=== PATIENT | male | born 1955 | race Hispanic/Latino ===

== ENCOUNTER → 2019-12-27 | Outpatient (CLI) | payer OTHER ==
[~2019-12-27] MED LIST: AMLO-97 PO; ASPI-1012 PO; CANA300T PO; COLC0.6C3 PO; HYDR-4457 PO; INSU300I SQ; LIRA0.6P2 SQ; LOSA50TA64 PO; METF-446 PO
== END | disposition home or self-care (01) ==
LOC: RAH 09:57
PROVIDERS: ATTEND Family Medicine
DX: E11.22 Type 2 diabetes mellitus with diabetic chronic kidney disease (principal); R25.2 Cramp and spasm; N18.9 Chronic kidney disease, unspecified; R22.41 Localized swelling, mass and lump, right lower limb
CPT/HCPCS: 93922; 93926; 93971

== ENCOUNTER → 2020-10-02 | Outpatient (CLI) | payer MEDICARE | END | disposition home or self-care (01) | LOC: RAH 13:58 | PROVIDERS: ATTEND Orthopaedic Surgery | DX: M17.12 Unilateral primary osteoarthritis, left knee (principal); M25.752 Osteophyte, left hip | CPT/HCPCS: 73700 ==

== ENCOUNTER → 2022-04-22 | Outpatient (CLI) | payer MEDICARE ==
[~2022-04-22] VITALS: Ht 175.3 cm; Wt 94.3 kg
[~2022-04-22] MED LIST changes: +ACAR25TA2 PO; +AEC81 PO; +AMLO-142 PO; -AMLO-97 PO; +CHOL4POW4 PO; +DAPA10TA PO; +FOLI1TAB85 PO; +FURO-152 PO; +METO-409 PO; +MONT-39 PO; +OMEP40CA21 PO; +SEMA14TA2 PO; +SODI650T PO
[2022-04-22 11:16] LABS: BASOPHILS % (AUTO) 0.8 % (0.0-5.0); EOSINOPHILS % (AUTO) 5.3 % (0.0-8.0); HEMATOCRIT 47.2 % (42-54); LYMPHOCYTES % (AUTO) 27.7 % (21.0-51.0); MEAN CORPUSCULAR HEMOGLOBIN 30.1 pg (27.0-33.0); MEAN CORPUSCULAR HGB CONC 33.1 g/dL (32.0-36.0); MEAN CORPUSCULAR VOLUME 90.9 fL (79-99); MONOCYTES % (AUTO) 7.1 % (3.0-13.0); PLATELET COUNT (AUTO) 195 K/uL (130-400); RED BLOOD CELL COUNT(AUTO) 5.19 MIL/uL (4.50-6.20); RED CELL DISTRIBUTION WIDTH 13.7 % (11.0-15.5); WHITE BLOOD COUNT (AUTO) 6.5 K/uL (4.8-10.8)
[2022-04-22 11:25] LABS: CREATININE 1.3 mg/dL (0.5-1.5); POTASSIUM 4.6 mmol/L (3.5-5.1)
[2022-04-22 11:46] LABS: INR 0.93 (0.85-1.15); PROTHROMBIN TIME 10.2 SEC (9.6-11.6)
[2022-04-22 11:47] LABS: PARTIAL THROMBOPLASTIN TIME 37.4 SEC (26.3-35.5)
[2022-04-22 12:08] VITALS: BP 140/78
== END | disposition home or self-care (01) ==
LOC: RAH 10:16
PROVIDERS: ATTEND Orthopaedic Surgery
DX: Z01.818 Encounter for other preprocedural examination (principal); M17.12 Unilateral primary osteoarthritis, left knee; M25.762 Osteophyte, left knee; M16.12 Unilateral primary osteoarthritis, left hip; M19.072 Primary osteoarthritis, left ankle and foot; Z20.822 Contact with and (suspected) exposure to COVID-19; E11.9 Type 2 diabetes mellitus without complications; N28.9 Disorder of kidney and ureter, unspecified
CPT/HCPCS: 73700; 87426; 80048; 85025; 85610; 85730; 36415; A6260

== ENCOUNTER 2022-04-28 07:36 | Observation (INO) | payer MEDICARE ==
[2022-04-22 11:16] LABS: BASOPHILS % (AUTO) 0.8 % (0.0-5.0); EOSINOPHILS % (AUTO) 5.3 % (0.0-8.0); HEMATOCRIT 47.2 % (42-54); LYMPHOCYTES % (AUTO) 27.7 % (21.0-51.0); MEAN CORPUSCULAR HEMOGLOBIN 30.1 pg (27.0-33.0); MEAN CORPUSCULAR HGB CONC 33.1 g/dL (32.0-36.0); MEAN CORPUSCULAR VOLUME 90.9 fL (79-99); MONOCYTES % (AUTO) 7.1 % (3.0-13.0); PLATELET COUNT (AUTO) 195 K/uL (130-400); RED BLOOD CELL COUNT(AUTO) 5.19 MIL/uL (4.50-6.20); RED CELL DISTRIBUTION WIDTH 13.7 % (11.0-15.5); WHITE BLOOD COUNT (AUTO) 6.5 K/uL (4.8-10.8)
[2022-04-22 11:25] LABS: CREATININE 1.3 mg/dL (0.5-1.5); POTASSIUM 4.6 mmol/L (3.5-5.1)
[2022-04-22 11:46] LABS: INR 0.93 (0.85-1.15); PROTHROMBIN TIME 10.2 SEC (9.6-11.6)
[2022-04-22 11:47] LABS: PARTIAL THROMBOPLASTIN TIME 37.4 SEC (26.3-35.5)
[2022-04-27 08:53] VITALS: BP 140/78
[~2022-04-28] VITALS: Ht 175.3 cm; Wt 94.3 kg
[2022-04-28] VITALS (25 sets, daily range): BP systolic 116–157; BP diastolic 68–89
[~2022-04-28 07:36] MED LIST changes: -ASPI-1012 PO; -CANA300T PO; -HYDR-4457 PO; -LIRA0.6P2 SQ; -LOSA50TA64 PO
[2022-04-28] MEDS ORDERED: CEFAZOLIN SODIUM 2 GM VIAL IVPB PRN (08:00)
[2022-04-28] MEDS ORDERED: LACTATED RINGERS 1000ML 1,000 ML IV SCH (08:00)
[2022-04-28] MEDS ORDERED: TRANEXAMIC ACID 1000MG/10ML IV PRN (08:00)
[2022-04-28] MEDS ORDERED: TRANEXAMIC ACID 1000MG/10ML ONE (08:13)
[2022-04-28] MEDS ORDERED: 0.9%NACL 1000ML 1,000 ML IV ONE (08:14)
[2022-04-28] MEDS ORDERED: LIDOCAINE HCL-MPF 1% 2ML VIAL IV PRN (09:30)
[2022-04-28] MEDS ORDERED: POTASSIUM CHLORIDE 20MEQ/100ML 100 ML IV PRN (09:30)
[2022-04-28] MEDS ORDERED: HYDROCODONE/ACETAMINOPHEN 10/325 MG TAB PO PRN (09:30)
[2022-04-28] MEDS ORDERED: HYDROCODONE/ACETAMINOPHEN 5/325 MG TAB PO PRN (09:30)
[2022-04-28] MEDS ORDERED: KCL 20 MEQ ERTAB PO PRN (09:30)
[2022-04-28] MEDS ORDERED: ONDANSETRON 4MG INJ IVP PRN (09:30)
[2022-04-28] MEDS: 0.9%NACL 1000ML 1,000 ML IV SCH ×2 (09:30→19:30)
[2022-04-28] MEDS ORDERED: POTASSIUM CHLORIDE 10% ELIXIR 20 MEQ/15 ML UDCUP PO PRN (09:30)
[2022-04-28] MEDS ORDERED: MORPHINE 4 MG SYG IVP PRN (09:30)
[2022-04-28] MEDS ORDERED: LIDOCAINE PF 100MG/5ML (2%) SYRINGE 5ML ONE (09:39)
[2022-04-28] MEDS ORDERED: MIDAZOLAM HCL 1 MG/ML 2ML VIAL ONE (09:40)
[2022-04-28] MEDS ORDERED: ROCURONIUM 10MG/1ML SYR 10 MG/ML ML ONE ×2 (09:40→11:37)
[2022-04-28] MEDS ORDERED: FENTANYL CITRATE PF 50 MCG/1 ML 2ML VIAL ONE ×3 (09:40→13:26)
[2022-04-28] MEDS ORDERED: PROPOFOL 10 MG/ML 20ML VIAL IV ONE (09:40)
[2022-04-28] MEDS: INSULIN GLARGINE 100 UNITS/ML 10 ML VIAL SQ SCH (09:45)
[2022-04-28] MEDS: PANTOPRAZOLE 40 MG TAB DR PO SCH (09:47)
[2022-04-28] MEDS: SEMAGLUTIDE 14 MG PO SCH (09:48)
[2022-04-28] MEDS: AMLODIPINE-BENAZEPRIL 5-20 MG PO SCH (09:54)
[2022-04-28] MEDS ORDERED: CEFAZOLIN SODIUM 2 GM VIAL IVPB ONE (11:08)
[2022-04-28] MEDS ORDERED: TRANEXAMIC ACID 1000MG/10ML IV ONE (11:13)
[2022-04-28] MEDS ORDERED: PHENYLEPHRINE HCL 10 MG/ML 1ML VIAL IV ONE (11:30)
[2022-04-28] MEDS: INSULIN HUMULIN R 100 UNIT/ML 3ML SQ SCH ×3 (11:30→19:54)
[2022-04-28] MEDS ORDERED: ONDANSETRON 4MG INJ ONE (11:36)
[2022-04-28] MEDS ORDERED: DEXAMETHASONE SOD PHOSPHATE 4 MG/ML 1ML VIAL ONE (11:36)
[2022-04-28] MEDS ORDERED: ROPIVICAINE 250MG+KETOROLAC 15MG+EPINEPHRINE 0.3+CLONIDINE 80 IV PRN ×5 (11:58)
[2022-04-28] MEDS: TRAMADOL HCL 50 MG TABLET PO SCH ×3 (12:00→23:34)
[2022-04-28] MEDS ORDERED: GLYCOPYRROLATE 1 MG/5 ML SYRINGE ONE (12:28)
[2022-04-28] MEDS ORDERED: NEOSTIGMINE 5MG/5ML SYR IV ONE (12:28)
[2022-04-28] MEDS ORDERED: KETOROLAC 30MG VIAL (30MG/ML) ONE (12:29)
[2022-04-28] MEDS ORDERED: TRANEXAMIC ACID 1000MG/10ML IV SCH (13:30)
[2022-04-28] MEDS ORDERED: MEPERIDINE-PF 25 MG/ML SYG ONE (13:54)
[2022-04-28] MEDS: ACETAMINOPHEN 1,000 MG/100 ML VIAL IV SCH ×3 (13:57→19:43)
[2022-04-28] MEDS: ACARBOSE 25 MG TABLET PO SCH ×2 (14:00→19:43)
[2022-04-28] MEDS: METFORMIN HCL 500 MG TABLET PO SCH (18:06)
[2022-04-28] MEDS: CEFAZOLIN SODIUM 1 GM VIAL IVP SCH ×2 (18:06→21:12)
[2022-04-28] MEDS: CHOLESTYRAMINE PACKET 4 GM PACKET PO SCH (19:42)
[2022-04-28] MEDS: FAMOTIDINE 20MG TAB PO SCH (19:42)
[2022-04-28] MEDS: SODIUM BICARBONATE 650 MG TAB PO SCH (19:42)
[2022-04-28] MEDS: ASPIRIN 81 MG EC TAB PO SCH (19:43)
[2022-04-28] MEDS ORDERED: METOPROLOL SUCCINATE 50 MG TAB.SR.24H PO SCH (21:00)
[2022-04-28] MEDS ORDERED: NON-FORMULARY MEDICATION 1 EACH (Metformin HCl 1,000 MG) PO SCH (21:00)
[2022-04-28] MEDS ORDERED: MONTELUKAST SODIUM 10 MG TAB PO SCH (21:00)
[2022-04-29 04:40] LABS: HEMATOCRIT 42.9 % (42-54); MEAN CORPUSCULAR HEMOGLOBIN 30.1 pg (27.0-33.0); MEAN CORPUSCULAR HGB CONC 33.1 g/dL (32.0-36.0); MEAN CORPUSCULAR VOLUME 90.9 fL (79-99); RED BLOOD CELL COUNT(AUTO) 4.72 MIL/uL (4.50-6.20); RED CELL DISTRIBUTION WIDTH 13.8 % (11.0-15.5); WHITE BLOOD COUNT (AUTO) 11.5 K/uL (4.8-10.8)
[2022-04-29 04:46] VITALS: BP 139/79
[2022-04-29] MEDS: 0.9%NACL 1000ML 1,000 ML IV SCH (04:46)
[2022-04-29] MEDS: TRAMADOL HCL 50 MG TABLET PO SCH ×2 (04:46→11:45)
[2022-04-29 04:52] LABS: CREATININE 1.4 mg/dL (0.5-1.5); POTASSIUM 4.5 mmol/L (3.5-5.1)
[2022-04-29] MEDS: INSULIN HUMULIN R 100 UNIT/ML 3ML SQ SCH ×2 (05:43→11:30)
[2022-04-29] MEDS: PANTOPRAZOLE 40 MG TAB DR PO SCH (07:30)
[2022-04-29 07:53] VITALS: BP 145/77
[2022-04-29] MEDS: SEMAGLUTIDE 14 MG PO SCH (09:00)
[2022-04-29] MEDS ORDERED: DAPAGLIFLOZIN PROPANEDIOL 10 MG PO SCH (09:00)
[2022-04-29] MEDS ORDERED: Vitamin B Complex/Vit C/Folic Acid PO SCH (09:00)
[2022-04-29] MEDS ORDERED: POLYETHYLENE GLYCOL 3350 17 GM POWD.PACK PO SCH (09:00)
[2022-04-29] MEDS ORDERED: NON-FORMULARY MEDICATION 1 EACH (Amlodipine Besylate/Benazepril (Amlodipine-Benazepril 10- PO SCH (09:00)
[2022-04-29] MEDS: INSULIN GLARGINE 100 UNITS/ML 10 ML VIAL SQ SCH (09:24)
[2022-04-29] MEDS: METFORMIN HCL 500 MG TABLET PO SCH (09:25)
[2022-04-29] MEDS: ASPIRIN 81 MG EC TAB PO SCH (09:26)
[2022-04-29] MEDS: SODIUM BICARBONATE 650 MG TAB PO SCH (09:26)
[2022-04-29] MEDS: FAMOTIDINE 20MG TAB PO SCH (09:26)
[2022-04-29] MEDS: CHOLESTYRAMINE PACKET 4 GM PACKET PO SCH (09:56)
[2022-04-29] MEDS: AMLODIPINE-BENAZEPRIL 5-20 MG PO SCH (09:57)
[2022-04-29] MEDS: ACARBOSE 25 MG TABLET PO SCH (09:57)
[2022-04-29 11:31] VITALS: BP 154/84
[2022-04-30] MEDS ORDERED: FUROSEMIDE 20 MG TABLET PO SCH (09:00)
[2022-05-01] MEDS ORDERED: BISACODYL 10 MG SUPP.RECT RC PRN (09:30)
== END 2022-04-29 16:00 | disposition home or self-care (01) ==
LOC: DAH 07:36 → DAHIP 07:37 → DAH 07:37 → 4CH 14:37
PROVIDERS: ADMIT Orthopaedic Surgery; ATTEND Orthopaedic Surgery
DX: M17.12 Unilateral primary osteoarthritis, left knee (principal); Z20.822 Contact with and (suspected) exposure to COVID-19; M71.22 Synovial cyst of popliteal space [Baker], left knee; E78.5 Hyperlipidemia, unspecified; I12.9 Hypertensive chronic kidney disease with stage 1 through stage 4 chronic kidney disease, or unspecified chronic kidney disease; E11.22 Type 2 diabetes mellitus with diabetic chronic kidney disease; N18.9 Chronic kidney disease, unspecified; Z79.899 Other long term (current) drug therapy
CPT/HCPCS: 0055T; 27447; 36415; 80048; 82948; 85025; 85027; 85610; 85730; 87426; 96374; 96375; 96376; 97039; G0378; J0690; J1100; J1815; J1885; J2001; J2175; J2250; J2370; J2405; J2704; J2710; J3010; J3490; J7030